=== PATIENT | female | born 1945 | race Caucasian/White ===

== ENCOUNTER 2020-06-24 14:30 | Emergency (ER) | payer OTHER ==
[2020-06-24 16:55] LABS: BASOPHIL 0.3 % (0-2); EOSINOPHIL 0.7 % (0-7); HCT 43.8 % (37.0-47.0); HGB 14.2 g/dl (12.5-16.0); LYMPHOCYTE 20.7 % (15-48); MCH 29.5 pg (25.0-31.0); MCHC 32.4 g/dL (32.0-36.0); MCV 90.9 fL (78.0-100.0); MONOCYTE 6.1 % (0-12); MPV 9.7 fL (6.0-9.5); NEUTROPHIL 71.9 % (41-80); NRBC 0; PLT 191 K/uL (150-400); RBC 4.82 M/uL (4.20-5.40); WBC 6.1 K/uL (4.0-10.5)
[2020-06-24 17:12] LABS: ALBUMIN 3.6 g/dL (3.4-5.0); BILIRUBIN - TOTAL 0.5 mg/dL (0.2-1.0); BUN/CREAT RATIO (CALC) 24.2 RATIO; CREATININE 0.62 mg/dL (0.51-0.95); GLOBULIN (CALCULATION) 3.1 g/dL; POTASSIUM 3.5 mmol/L (3.5-5.1); TOTAL PROTEIN 6.7 g/dL (6.4-8.2)
[2020-06-24] MEDS ORDERED: ANTIVERT25 MG PO (17:57)
== END 2020-06-24 18:27 | disposition home or self-care (01) ==
LOC: FER 14:30
PROVIDERS: Emergency Medicine
DX: H81.10 Benign paroxysmal vertigo, unspecified ear (principal); I10 Essential (primary) hypertension; Z20.822 Contact with and (suspected) exposure to COVID-19
CPT/HCPCS: 36415; 70450; 71045; 80053; 85025; 93005; U0002